=== PATIENT | female | born 1970 | race Caucasian/White ===

== ENCOUNTER → 2017-07-05 | Outpatient (CLI) | payer OTHER ==
[2015-08-27 19:39] VITALS: BP 121/70
[~2017-07-05] MED LIST: NAPR500T4 PO
--- NOTE | 2017-07-05 10:11 | RAD ---
DATE: 07/05/2017 EXAM: DIGITAL DIAGNOSTIC RT HISTORY: Asymmetry right breast COMPARISON: 06/27/2017 This study was interpreted with the benefit of Computerized Aided Detection (CAD). FINDINGS: Breast Density: HETERO The breast parenchyma Is heterogeneouslyy dense, which could reduce sensitivity of mammography. Breast parenchyma level C. Spot compression views of the right inner upper breast demonstrate spreading of the breast tissue on the spot images. No definite evidence of mass or lesion identified. Small intramammary lymph nodes identified in the right breast. IMPRESSION: Benign findings. BI-RADS CATEGORY: 2 BENIGN FINDING RECOMMENDED FOLLOW-UP: 12M 12 MONTH FOLLOW-UP PQRS compliance statement: Patient information was entered into a reminder system with a target due date 06/27/2018 for the next mammogram. Mammography is a sensitive method for finding small breast cancers, but it does not detect them all and is not a substitute for careful clinical examination. A negative mammogram does not negate a clinically suspicious finding and should not result in delay in biopsying a clinically suspicious abnormality. "Our facility is accredited by the [employer] Mammography Program."
== END | disposition home or self-care (01) ==
LOC: MAMMO 08:39
PROVIDERS: ATTEND Family Medicine
DX: R92.8 Other abnormal and inconclusive findings on diagnostic imaging of breast (principal)
CPT/HCPCS: G0206; 77065

== ENCOUNTER 2018-06-10 05:43 | Emergency (ER) | payer OTHER ==
[~2018-06-10] VITALS: Ht 175.3 cm; Wt 101.3 kg
[~2018-06-10 05:43] MED LIST changes: +NAPR-514 PO; -NAPR500T4 PO
[2018-06-10 05:45] VITALS: BP 131/105
[2018-06-10] MEDS ORDERED: LORazepam 1 MG TABLET ONE (05:51)
[2018-06-10] MEDS ORDERED: IV RINGERS SOLUTION,LACTATED 1,000 ML IV SCH (05:53)
--- NOTE | 2018-06-10 05:53 | ED.ADGEN ---
Past History Past Medical History: Seizure (KATYA KEENE MD) Past Surgical History: Cholecystectomy, Tubal ligation (KATYA KEENE MD) Smoking: Non-smoker Alcohol Use: None Drug Use: None (KATYA KEENE MD) Adult General Chief Complaint Chief Complaint ".. I guess I had a seizure... I have them sometimes... even if I take my Keppra... " (KATYA KEENE MD) HPI HPI Patient is a 47 year old female from [facility] [place] [facility] who presents with hx of tonic /clonic seizure. Pt. only current complaint is where she bit her tongue.. Pt. has been taking her Keppra 500 twice a day. Pt. denies any drug use. Patient denies any changes in meds. Patient denies any recent fever or chills. Patient denies any history of trauma. (KATYA KEENE MD) Review of Systems Review of Systems Constitutional: Denies fever or chills [] Eyes: Denies change in visual acuity, redness, or eye pain [] HENT: Denies nasal congestion or sore throat []complaints of bite to tongue Respiratory: Denies cough or shortness of breath [] Cardiovascular: No additional information not addressed in HPI [] GI: Denies abdominal pain, nausea, vomiting, bloody stools or diarrhea [] : Denies dysuria or hematuria [] Musculoskeletal: Denies back pain or joint pain [] Integument: Denies rash or skin lesions [] Neurologic: Denies headache, focal weakness or sensory changes []history of seizure tonic-clonic Endocrine: Denies polyuria or polydipsia [] All other systems were reviewed and found to be within normal limits, except as documented in this note. (KATYA KEENE MD) Family History Family History Noncontributory (KATYA KEENE MD) Current Medications Current Medications Current Medications Medications (Trade) Dose Ordered Sig/Delfino Start Time Stop Time Status Last Admin Dose Admin Lactated Ringer's 1,000 ml @ 1,000 mls/hr Q1H 06/10/18 05:53 06/10/18 06:52 DC 06/10/18 06:31 1,000 MLS/HR Levetiracetam (Keppra) 500 mg 1X ONCE 06/10/18 06:00 06/10/18 06:01 DC 06/10/18 06:31 500 MG Lorazepam (Ativan) 2 mg 1X ONCE 06/10/18 06:00 06/10/18 06:01 DC (TANISHA MARQUIS DO) Allergies Allergies Allergies Coded Allergies Type Severity Reaction Last Updated Verified Cyclobenzaprine Adverse Reaction Intermediate 05/07/14 Yes (TANISHA MARQUIS DO) Physical Exam Physical Exam Constitutional: mild distress, non-toxic appearance. [] HENT: Normocephalic, bite nixon to tongue, bilateral external ears normal, oropharynx moist, no oral exudates, nose normal. [] Eyes: PERRLA, EOMI, conjunctiva normal, no discharge. [] Neck: Normal range of motion, no tenderness, supple, no stridor. [] Cardiovascular:Heart rate regular rhythm, no murmur [] Lungs & Thorax: Bilateral breath sounds clear to auscultation [] Abdomen: Bowel sounds normal, soft, no tenderness, no masses, no pulsatile masses. Old surgery scar Skin: Warm, dry, no erythema, no rash. [] Back: No tenderness, no CVA tenderness. [] Extremities: No tenderness, no cyanosis, no clubbing, ROM intact, no edema. [] Neurologic: Alert and oriented X 3, normal motor function, normal sensory function, no focal deficits noted. []DTRs +2 patella and brachial. Moves all extremities without problem. Psychologic: Affect normal, judgement normal, mood normal. [] (KATYA KEENE MD) Current Patient Data Vital Signs Vital Signs Date Time Temp Pulse Resp B/P (MAP) Pulse Ox O2 Delivery O2 Flow Rate FiO2 06/10/18 05:45 98.3 93 22 94 Room Air (MARQUISTANISHA ) Lab Results Laboratory Tests Test 06/10/18 06:00 06/10/18 06:20 White Blood Count 5.7 x10^3/uL (4.0-11.0) Red Blood Count 4.21 x10^6/uL (3.50-5.40) Hemoglobin 11.5 g/dL (12.0-15.5) L Hematocrit 34.8 % (36.0-47.0) L Mean Corpuscular Volume 83 fL (79-100) Mean Corpuscular Hemoglobin 27 pg (25-35) Mean Corpuscular Hemoglobin Concent 33 g/dL (31-37) Red Cell Distribution Width 13.2 % (11.5-14.5) Platelet Count 281 x10^3/uL (140-400) Neutrophils (%) (Auto) 61 % (31-73) Lymphocytes (%) (Auto) 29 % (24-48) Monocytes (%) (Auto) 9 % (0-9) Eosinophils (%) (Auto) 2 % (0-3) Basophils (%) (Auto) 1 % (0-3) Neutrophils # (Auto) 3.5 x10^3uL (1.8-7.7) Lymphocytes # (Auto) 1.6 x10^3/uL (1.0-4.8) Monocytes # (Auto) 0.5 x10^3/uL (0.0-1.1) Eosinophils # (Auto) 0.1 x10^3/uL (0.0-0.7) Basophils # (Auto) 0.0 x10^3/uL (0.0-0.2) Prothrombin Time 10.0 SEC (9.4-11.4) Prothrombin Time INR 1.0 (0.9-1.1) PTT 23 SEC (23-33) Sodium Level 140 mmol/L (136-145) Potassium Level 3.7 mmol/L (3.5-5.1) Chloride Level 105 mmol/L (98-107) Carbon Dioxide Level 29 mmol/L (21-32) Anion Gap 6 (6-14) Blood Urea Nitrogen 11 mg/dL (7-20) Creatinine 0.7 mg/dL (0.6-1.0) Estimated GFR (Cockcroft-Gault) 90.5 Glucose Level 85 mg/dL (70-99) Calcium Level 8.8 mg/dL (8.5-10.1) Magnesium Level 1.5 mg/dL (1.8-2.4) L Total Bilirubin 0.2 mg/dL (0.2-1.0) Direct Bilirubin 0.1 mg/dL (0.0-0.2) Aspartate Amino Transferase (AST) 19 U/L (15-37) Alanine Aminotransferase (ALT) 25 U/L (14-59) Alkaline Phosphatase 95 U/L (46-116) Creatine Kinase 90 U/L (26-192) Troponin I Quantitative < 0.017 ng/mL (0-0.055) Total Protein 7.5 g/dL (6.4-8.2) Albumin 3.3 g/dL (3.4-5.0) L Urine Collection Type Void Urine Color Red Urine Clarity Bloody Urine pH 5.0 Urine Specific Chandler >=1.030 Urine Protein >100 mg/dl (NEG-TRACE) Urine Glucose (UA) Neg mg/dL (NEG) Urine Ketones (Stick) Neg mg/dL (NEG) Urine Blood Large (NEG) Urine Nitrite Neg (NEG) Urine Bilirubin Neg (NEG) Urine Urobilinogen Dipstick 0.2 mg/dL (0.2 mg/dL) Urine Leukocyte Esterase Small (NEG) Urine RBC Tntc /HPF (0-2) Urine WBC 11-20 /HPF (0-4) Urine Squamous Epithelial Cells Few /LPF Urine Bacteria Few /HPF (0-FEW) Urine Opiates Screen Neg (NEG) Urine Methadone Screen Neg (NEG) Urine Barbiturates Neg (NEG) Urine Phencyclidine Screen Neg (NEG) Urine Amphetamine/Methamphetamine Neg (NEG) Urine Benzodiazepines Screen Neg (NEG) Urine Cocaine Screen Neg (NEG) Urine Cannabinoids Screen Neg (NEG) Urine Ethyl Alcohol Neg (NEG) (TANISHA MARQUIS DO) Lab Results Laboratory Tests Test 06/10/18 06:00 06/10/18 06:20 White Blood Count 5.7 x10^3/uL (4.0-11.0) Red Blood Count 4.21 x10^6/uL (3.50-5.40) Hemoglobin 11.5 g/dL (12.0-15.5) L Hematocrit 34.8 % (36.0-47.0) L Mean Corpuscular Volume 83 fL (79-100) Mean Corpuscular Hemoglobin 27 pg (25-35) Mean Corpuscular Hemoglobin Concent 33 g/dL (31-37) Red Cell Distribution Width 13.2 % (11.5-14.5) Platelet Count 281 x10^3/uL (140-400) Neutrophils (%) (Auto) 61 % (31-73) Lymphocytes (%) (Auto) 29 % (24-48) Monocytes (%) (Auto) 9 % (0-9) Eosinophils (%) (Auto) 2 % (0-3) Basophils (%) (Auto) 1 % (0-3) Neutrophils # (Auto) 3.5 x10^3uL (1.8-7.7) Lymphocytes # (Auto) 1.6 x10^3/uL (1.0-4.8) Monocytes # (Auto) 0.5 x10^3/uL (0.0-1.1) Eosinophils # (Auto) 0.1 x10^3/uL (0.0-0.7) Basophils # (Auto) 0.0 x10^3/uL (0.0-0.2) Prothrombin Time 10.0 SEC (9.4-11.4) Prothrombin Time INR 1.0 (0.9-1.1) PTT 23 SEC (23-33) Sodium Level 140 mmol/L (136-145) Potassium Level 3.7 mmol/L (3.5-5.1) Chloride Level 105 mmol/L (98-107) Carbon Dioxide Level 29 mmol/L (21-32) Anion Gap 6 (6-14) Blood Urea Nitrogen 11 mg/dL (7-20) Creatinine 0.7 mg/dL (0.6-1.0) Estimated GFR (Cockcroft-Gault) 90.5 Glucose Level 85 mg/dL (70-99) Calcium Level 8.8 mg/dL (8.5-10.1) Magnesium Level 1.5 mg/dL (1.8-2.4) L Total Bilirubin 0.2 mg/dL (0.2-1.0) Direct Bilirubin 0.1 mg/dL (0.0-0.2) Aspartate Amino Transferase (AST) 19 U/L (15-37) Alanine Aminotransferase (ALT) 25 U/L (14-59) Alkaline Phosphatase 95 U/L (46-116) Creatine Kinase 90 U/L (26-192) Troponin I Quantitative < 0.017 ng/mL (0-0.055) Total Protein 7.5 g/dL (6.4-8.2) Albumin 3.3 g/dL (3.4-5.0) L Urine Collection Type Void Urine Color Red Urine Clarity Bloody Urine pH 5.0 Urine Specific [place] >=1.030 Urine Protein >100 mg/dl (NEG-TRACE) Urine Glucose (UA) Neg mg/dL (NEG) Urine Ketones (Stick) Neg mg/dL (NEG) Urine Blood Large (NEG) Urine Nitrite Neg (NEG) Urine Bilirubin Neg (NEG) Urine Urobilinogen Dipstick 0.2 mg/dL (0.2 mg/dL) Urine Leukocyte Esterase Small (NEG) Urine RBC Tntc /HPF (0-2) Urine WBC 11-20 /HPF (0-4) Urine Squamous Epithelial Cells Few /LPF Urine Bacteria Few /HPF (0-FEW) Urine Opiates Screen Neg (NEG) Urine Methadone Screen Neg (NEG) Urine Barbiturates Neg (NEG) Urine Phencyclidine Screen Neg (NEG) Urine Amphetamine/Methamphetamine Neg (NEG) Urine Benzodiazepines Screen Neg (NEG) Urine Cocaine Screen Neg (NEG) Urine Cannabinoids Screen Neg (NEG) Urine Ethyl Alcohol Neg (NEG) (KATYA KEENE MD) EKG EKG [] (KATYA KEENE MD) Radiology/Procedures Radiology/Procedures [] (KATYA KEENE MD) Impressions: PQRS Compliance Statement: One or more of the following individualized dose reduction techniques were utilized for this examination: 1. Automated exposure control 2. Adjustment of the mA and/or kV according to patient size 3. Use of iterative reconstruction technique CT head without contrast 06/10/2018 6:47 AM INDICATION: Seizure, fall COMPARISON: CT head January 19, 2014 TECHNIQUE: Multiple axial CT images of the head were obtained from skull base through the vertex without intravenous contrast. FINDINGS: Head: Ventricles, sulci and basal cisterns are within normal limits. There is no hydrocephalus. Rosa-white matter differentiation is normal. There is no acute intracranial hemorrhage. There is no mass, mass effect or midline shift. Posterior fossa is normal in appearance. Visualized portions of the orbits are normal. Mild mucosal thickening of the right maxillary sinus is noted. Mastoid air cells are well aerated. Scalp and calvaria are normal. IMPRESSION: No acute intracranial hemorrhage. Electronically signed by: Salome Escobedo MD (06/10/2018 7:19 AM) [facility] DICTATED AND SIGNED BY: SALOME ESCOBEDO MD DATE: 06/10/18 0718 CC: TANISHA MARQUIS DO; ARIELA PARKER MD (TANISHA MARQUIS DO) Course & Med Decision Making Course & Med Decision Making Pertinent Labs and Imaging studies reviewed. (See chart for details). Labs pending at shift change. Discussed presentation, testing and tx plan with Dr. Marquis. He will make disposition of pt. Suspect break through seizure. [] (KATYA KEENE MD) Course & Med Decision Making The patient's labs are unremarkable. Her chest x-ray is unremarkable. Her head CT is negative for acute findings. Her urine has significant bloody, but the patient is on her menses. I do not wish has an infection. She is asymptomatic. I believe the patient has a breakthrough seizure. She has been given Ativan and a dose of Keppra in the ED. She is stable for discharge at this time. (TANISHA MARQUIS DO) Final Impression Final Impression 1. Seizure-tonic clonic[] (KATYA KEENE MD) Final Impression Breakthrough seizure (TANISHA MARQUIS DO) Dragon Disclaimer Dragon Disclaimer This electronic medical record was generated, in whole or in part, using a voice recognition dictation system. (KATYA KEENE MD) KATYA KEENE MD Jun 10, 2018 05:53 TANISHA MARQUIS DO Jun 10, 2018 07:32
[2018-06-10] MEDS ORDERED: LORazepam 1 MG TABLET PO ONE ×2 (06:00)
[2018-06-10] MEDS ORDERED: levETIRAcetam 500 MG TABLET PO ONE (06:00)
[2018-06-10] MEDS ORDERED: LEVE500T56 PO (06:19)
[2018-06-10 06:47] LABS: BASO % 1 % (0-3); EOS # 0.1 x10^3/uL (0.0-0.7); EOS % 2 % (0-3); HEMATOCRIT 34.8 % (36.0-47.0); HEMOGLOBIN 11.5 g/dL (12.0-15.5); LYMPH # 1.6 x10^3/uL (1.0-4.8); LYMPH % 29 % (24-48); MEAN CORPUSCULAR HEMOGLOBIN 27 pg (25-35); MEAN CORPUSCULAR HGB CONC 33 g/dL (31-37); MEAN CORPUSCULAR VOLUME 83 fL (79-100); MONO # 0.5 x10^3/uL (0.0-1.1); MONO % 9 % (0-9); NEUT # 3.5 x10^3uL (1.8-7.7); NEUT % 61 % (31-73); PLATELET COUNT 281 x10^3/uL (140-400); RED BLOOD COUNT 4.21 x10^6/uL (3.50-5.40); RED CELL DISTRIBUTION WIDTH 13.2 % (11.5-14.5); WHITE BLOOD COUNT 5.7 x10^3/uL (4.0-11.0)
[2018-06-10 06:56] LABS: BILIRUBIN,URINE NEG (NEG); CLARITY,URINE BLOODY; COLOR,URINE RED; GLUCOSE,URINE NEG (NEG)
[2018-06-10 06:57] LABS: BACTERIA,URINE FEW /HPF (0-FEW); NITRITE,URINE NEG (NEG); RBC,URINE TNTC /HPF (0-2); SQUAMOUS EPITHELIAL CELL,UR FEW /LPF; UROBILINOGEN,URINE 0.2 mg/dL (0.2 mg/dL)
[2018-06-10 06:57] LABS: ALBUMIN 3.3 g/dL (3.4-5.0); CALCIUM 8.8 mg/dL (8.5-10.1); CREATININE 0.7 mg/dL (0.6-1.0); DIRECT BILIRUBIN 0.1 mg/dL (0.0-0.2); GFR 90.5; MAGNESIUM 1.5 mg/dL (1.8-2.4); POTASSIUM 3.7 mmol/L (3.5-5.1); TOTAL BILIRUBIN 0.2 mg/dL (0.2-1.0); TOTAL PROTEIN 7.5 g/dL (6.4-8.2)
[2018-06-10 06:59] LABS: AMPHETAMINE/METHAMPHETAMINE NEG (NEG); BARBITURATES NEG (NEG); BENZODIAZEPINES NEG (NEG); CANNABINOIDS NEG (NEG); COCAINE NEG (NEG); METHADONE NEG (NEG); OPIATES NEG (NEG); PHENCYCLIDINE NEG (NEG)
--- NOTE | 2018-06-10 07:23 | RAD ---
RS Compliance Statement: One or more of the following individualized dose reduction techniques were utilized for this examination: 1. Automated exposure control 2. Adjustment of the mA and/or kV according to patient size 3. Use of iterative reconstruction technique CT head without contrast 06/10/2018 6:47 AM INDICATION: Seizure, fall COMPARISON: CT head January 19, 2014 TECHNIQUE: Multiple axial CT images of the head were obtained from skull base through the vertex without intravenous contrast. FINDINGS: Head: Ventricles, sulci and basal cisterns are within normal limits. There is no hydrocephalus. Rosa-white matter differentiation is normal. There is no acute intracranial hemorrhage. There is no mass, mass effect or midline shift. Posterior fossa is normal in appearance. Visualized portions of the orbits are normal. Mild mucosal thickening of the right maxillary sinus is noted. Mastoid air cells are well aerated. Scalp and calvaria are normal. IMPRESSION: No acute intracranial hemorrhage. Electronically signed by: Ashley Gonzalez MD (06/10/2018 7:19 AM) [facility]
--- NOTE | 2018-06-10 08:36 | RAD ---
EXAM: CHEST 1 VIEW History: Seizure COMPARISON: None available. TECHNIQUE: Single portable radiograph of the chest FINDINGS: The cardiac silhouette is unremarkable. The lungs are clear bilaterally. The costophrenic sulci are clear and well demarcated. IMPRESSION: No radiographic evidence of an acute cardiopulmonary process. Electronically signed by: Osmani Iyer MD (06/10/2018 8:32 AM) [facility]
--- NOTE | 2018-06-10 09:50 | EKG ---
[address] [address] Test Date: 2018-06-10 Test Time: 06:06:52 Pat Name: PAVAN GARCIA Department: Room: Gender: F [employer] Tender: : 1970 Requested By: KATYA KEENE Order Number: [id number] Reading MD: Juan Childs MD Measurements Intervals [place] Rate: 84 P: 21 [place]: 138 QRS: -3 QRSD: 80 T: 15 QT: 372 QTc: 443 Interpretive Statements SINUS RHYTHM Electronically Signed On 06-11-2018 14:01:16 CDT by Juan Childs MD
== END 2018-06-10 07:40 | disposition home or self-care (01) ==
LOC: ER 05:43
DX: G40.89 Other seizures (principal); Z88.8 Allergy status to other drugs, medicaments and biological substances
CPT/HCPCS: 36415; 70450; 71045; 80048; 80076; 80307; 81001; 82550; 83735; 84484; 85025; 85610; 85730; 87086; 93005; 99285; J7120; G0479

== ENCOUNTER 2020-08-01 15:36 | Emergency (ER) | payer MEDICAID, OTHER ==
[~2020-08-01] VITALS: Ht 175.3 cm; Wt 85.0 kg
[~2020-08-01 15:36] MED LIST changes: +LEVE500T56 PO
[2020-08-01] MEDS ORDERED: IV NORMAL SALINE 1,000ML 1,000 ML IV ONE (16:15)
--- NOTE | 2020-08-01 16:27 | PHYS DOC ---
Past History Past Medical History: Gallstones, Seizure Past Surgical History: Cholecystectomy, Tonsillectomy, Tubal ligation Smoking: Non-smoker Alcohol Use: None Drug Use: None General Adult EDM: Chief Complaint: SEIZURE HPI: HPI: Patient is a 49-year-old female who was brought here by EMS from home after she had a seizure activity. Patient did not remember what happened. She denies any headache, no neck pain, no back pain, no abdominal pain, no nausea vomiting. Patient thought that she might have fell on her left side and hurt her left hip and her and her left chest area because he is having pain in the with movement or taking a deep breath. There was no report of head or neck injury. Patient has history of seizure disorder, she is on Keppra 500 mg that she is taking 2 pills twice a day. Patient says she did not miss any of her medication. Patient denies any cough or fever, no recent sickness. Review of Systems: Review of Systems: Constitutional: Denies fever or chills Eyes: Denies change in visual acuity HENT: Denies nasal congestion or sore throat Respiratory: Denies cough or shortness of breath Cardiovascular: Denies chest pain or edema, positive for left-sided pain GI: Denies abdominal pain, nausea, vomiting, bloody stools or diarrhea : Denies dysuria Musculoskeletal: Denies back pain , positive for left side hip pain Integument: Denies rash Neurologic: Denies headache, focal weakness or sensory changes Endocrine: Denies polyuria or polydipsia Lymphatic: Denies swollen glands Psychiatric: Denies depression or anxiety Current Medications: Current Meds: Current Medications Medications (Trade) Dose Ordered Sig/[facility] Start Time Stop Time Status Last Admin Dose Admin Levetiracetam 1000 mg/Sodium Chloride 100 ml @ 400 mls/hr 1X ONCE 08/01/20 16:00 08/01/20 16:14 DC Sodium Chloride 1,000 ml @ 1,000 mls/hr 1X ONCE 08/01/20 16:15 08/01/20 17:14 Allergies: Allergies: Allergies Coded Allergies Type Severity Reaction Last Updated Verified cyclobenzaprine Adverse Reaction Intermediate 08/01/20 Yes Physical Exam: PE: Constitutional: Well developed, well nourished, no acute distress, non-toxic appearance. [] HENT: Normocephalic, atraumatic, bilateral external ears normal, oropharynx moist, no oral exudates, nose normal. No tongue abrasion, no scalp contusion, neck is supple, no midline cervical tenderness to palpation Eyes: PERRLA, EOMI, conjunctiva normal, no discharge. [] Neck: Normal range of motion, no tenderness, supple, no stridor. [] Cardiovascular:Heart rate regular rhythm, no murmur [] Lungs & Thorax: Bilateral breath sounds clear to auscultation [] Abdomen: Bowel sounds normal, soft, no tenderness, no masses, no pulsatile masses. [] Skin: Warm, dry, no erythema, no rash. [] Back: No tenderness, no CVA tenderness. [] Extremities: No tenderness, no cyanosis, no clubbing, ROM intact, no edema. [] Neurologic: Alert and oriented X 3, normal motor function, normal sensory function, no focal deficits noted. [] Psychologic: Affect normal, judgement normal, mood normal. [] Current Patient Data: Labs: Laboratory Tests Test 08/01/20 16:40 White Blood Count 8.4 x10^3/uL Red Blood Count 3.75 x10^6/uL Hemoglobin 10.3 g/dL Hematocrit 31.3 % Mean Corpuscular Volume 84 fL Mean Corpuscular Hemoglobin 28 pg Mean Corpuscular Hemoglobin Concent 33 g/dL Red Cell Distribution Width 14.5 % Platelet Count 339 x10^3/uL Neutrophils (%) (Auto) 71 % Lymphocytes (%) (Auto) 18 % Monocytes (%) (Auto) 9 % Eosinophils (%) (Auto) 1 % Basophils (%) (Auto) 1 % Neutrophils # (Auto) 5.9 x10^3uL Lymphocytes # (Auto) 1.5 x10^3/uL Monocytes # (Auto) 0.8 x10^3/uL Eosinophils # (Auto) 0.0 x10^3/uL Basophils # (Auto) 0.1 x10^3/uL Sodium Level 135 mmol/L Potassium Level 3.6 mmol/L Chloride Level 101 mmol/L Carbon Dioxide Level 24 mmol/L Anion Gap 10 Blood Urea Nitrogen 9 mg/dL Creatinine 0.7 mg/dL Estimated GFR (Cockcroft-Gault) 89.7 BUN/Creatinine Ratio 13 Glucose Level 86 mg/dL Calcium Level 8.3 mg/dL Magnesium Level 1.7 mg/dL Total Bilirubin 1.1 mg/dL Aspartate Amino Transf (AST/SGOT) 35 U/L Alanine Aminotransferase (ALT/SGPT) 34 U/L Alkaline Phosphatase 78 U/L Creatine Kinase 169 U/L Troponin I Quantitative < 0.017 ng/mL Total Protein 7.4 g/dL Albumin 3.4 g/dL Albumin/Globulin Ratio 0.9 Current Medications Medications (Trade) Dose Ordered Sig/Delfino Route PRN Reason Start Time Stop Time Status Last Admin Dose Admin Levetiracetam 1000 mg/Sodium Chloride 100 ml @ 400 mls/hr 1X ONCE IV 08/01/20 16:00 08/01/20 16:14 DC 08/01/20 16:38 Sodium Chloride 1,000 ml @ 1,000 mls/hr 1X ONCE IV 08/01/20 16:15 08/01/20 17:14 DC 08/01/20 16:38 Magnesium Sulfate 100 ml @ 100 mls/hr 1X ONCE IV 08/01/20 18:00 08/01/20 18:59 Vital Signs: Vital Signs Date Time Temp Pulse Resp B/P (MAP) Pulse Ox O2 Delivery O2 Flow Rate FiO2 08/01/20 15:40 98.2 100 18 140/82 (101) 99 Room Air EKG: EKG: EKG was done and it show no ST segment elevation, sinus rhythm. Radiology/Procedures: Radiology/Procedures: X-ray of her chest and her pelvic and her left hip did not show any acute problem. [address] [address] IMAGING REPORT Signed PATIENT: PAVAN GARCIA ACCOUNT: [id number] : 1970 LOCATION: ER AGE: 49 SEX: F EXAM STATUS: REG ER ORD. PHYSICIAN: ALTHEA HUSTON DO REASON: HAD A SEIZURE, FELL ON LEFT SIDE CHEST PROCEDURE: CHEST AP ONLY INDICATION: Reason: HAD A SEIZURE, FELL ON LEFT SIDE CHEST / Spl. Instructions: / History: COMPARISON: May 2018 FINDINGS: Single view of chest obtained. Cardiac silhouette is similar to prior. No focal airspace consolidation or pulmonary edema. A definite displaced fracture is not seen. IMPRESSION: * No focal airspace consolidation or edema. Electronically signed by: Aurora Olmstead MD (08/01/2020 5:45 PM) [id number] DICTATED AND SIGNED BY: AURORA OLMSTEAD MD DATE: 08/01/20 1745 CC: ARIELA PARKER MD; ALTHEA HUSTON DO ~MTH0 0 Heart Score: Risk Factors: Risk Factors: DM, Current or recent (<one month) smoker, HTN, HLP, family history of CAD, obesity. Risk Scores: Score 0 - 3: 2.5% MACE over next 6 weeks - Discharge Home Score 4 - 6: 20.3% MACE over next 6 weeks - Admit for Clinical Observation Score 7 - 10: 72.7% MACE over next 6 weeks - Early Invasive Strategies Course & Med Decision Making: Course & Med Decision Making Pertinent Labs and Imaging studies reviewed. (See chart for details) Patient is a 49-year-old female who presented to ER today for evaluation of seizure activity. Patient has a history of seizure disorder, she is on Keppra. There is no seizure activity observed in the ER, x-ray her chest to help hip an d pelvis did not show any acute problem. Patient was given loading dose of 1 g of Keppra IV in ER. Patient will be discharged home, she will need to call her family physician and her neurologist for follow-up on Monday. Patient is amenable to plan of care. Dragon Disclaimer: Dragon Disclaimer: This electronic medical record was generated, in whole or in part, using a voice recognition dictation system. Departure Departure: Impression: Primary Impression: Seizure Additional Impression: Hypomagnesemia Disposition: 01 DC HOME SELF CARE/HOMELESS Condition: STABLE Referrals: ARIELA PARKER MD (PCP) Please call your doctor for follow-up on Monday. Patient Instructions: Seizure, Adult Additional Instructions: Thank you for visiting our Emergency Department. We appreciate you trusting us with your care. If any additional problems come up don't hesitate to return to visit us. Please follow up with your primary care provider so they can plan additional care if needed and know about the problem that you had. If symptoms worsen come back to the Emergency Department. Any concerning symptoms that start such as chest pain, shortness of air, weakness or numbness on one side of the body, running high fevers or any other concerning symptoms return to the ER. ALTHEA HUSTON DO Aug 01, 2020 16:27
--- NOTE | 2020-08-01 16:48 | EKG ---
[facility] ED [facility] [address] [place] [id number] Test Date: 2020-08-01 Test Time: 16:07:32 Pat Name: PAVAN GARCIA Department: Room: Gender: F Electronic Health Records Specialist: : 1970 Requested By: ALTHEA HUSTON Order Number: [id number] Reading MD: Measurements Intervals [place] Rate: 83 P: 31 [place]: 142 QRS: 8 QRSD: 76 T: 28 QT: 398 QTc: 468 Interpretive Statements SINUS RHYTHM NORMAL ECG RI6.02 No previous ECG available for comparison
[2020-08-01 17:04] LABS: BASO # 0.1 x10^3/uL (0.0-0.2); BASO % 1 % (0-3); EOS % 1 % (0-3); HEMATOCRIT 31.3 % (36.0-47.0); HEMOGLOBIN 10.3 g/dL (12.0-15.5); LYMPH # 1.5 x10^3/uL (1.0-4.8); LYMPH % 18 % (24-48); MEAN CORPUSCULAR HEMOGLOBIN 28 pg (25-35); MEAN CORPUSCULAR HGB CONC 33 g/dL (31-37); MEAN CORPUSCULAR VOLUME 84 fL (79-100); MONO # 0.8 x10^3/uL (0.0-1.1); MONO % 9 % (0-9); NEUT # 5.9 x10^3uL (1.8-7.7); NEUT % 71 % (31-73); PLATELET COUNT 339 x10^3/uL (140-400); RED BLOOD COUNT 3.75 x10^6/uL (3.50-5.40); RED CELL DISTRIBUTION WIDTH 14.5 % (11.5-14.5); WHITE BLOOD COUNT 8.4 x10^3/uL (4.0-11.0)
[2020-08-01 17:11] LABS: CALCIUM 8.3 mg/dL (8.5-10.1); CREATININE 0.7 mg/dL (0.6-1.0); GFR 89.7; POTASSIUM 3.6 mmol/L (3.5-5.1)
[2020-08-01 17:17] LABS: ALBUMIN 3.4 g/dL (3.4-5.0); ALBUMIN/GLOBULIN RATIO 0.9 (1.0-1.7); MAGNESIUM 1.7 mg/dL (1.8-2.4); TOTAL BILIRUBIN 1.1 mg/dL (0.2-1.0); TOTAL PROTEIN 7.4 g/dL (6.4-8.2)
--- NOTE | 2020-08-01 17:48 | RAD ---
INDICATION: Reason: HAD A SEIZURE, FELL ON LEFT SIDE CHEST / Spl. Instructions: / History: COMPARISON: May 2018 FINDINGS: Single view of chest obtained. Cardiac silhouette is similar to prior. No focal airspace consolidation or pulmonary edema. A definite displaced fracture is not seen. IMPRESSION: * No focal airspace consolidation or edema. Electronically signed by: Saeid Vizcarra MD (08/01/2020 5:45 PM) [id number]
--- NOTE | 2020-08-01 17:48 | RAD ---
AP pelvis with 2 views left hip 08/01/2020. Reason for exam: Pain after seizure. No fracture or dislocation is seen. There is no apparent joint narrowing. AP view of the pelvis shows no fracture or other acute abnormality. IMPRESSION: No acute abnormality at the left hip. Electronically signed by: Valentino Arshad Jr., MD (08/01/2020 5:45 PM) [id number]
[2020-08-01] MEDS ORDERED: MAGNESIUM SULFATE 1GM 100 ML IV ONE (18:00)
[2020-08-01 18:25] VITALS: BP 138/88
== END 2020-08-01 18:25 | disposition home or self-care (01) ==
LOC: ER 15:36
DX: G40.909 Epilepsy, unspecified, not intractable, without status epilepticus (principal); E83.42 Hypomagnesemia; M25.552 Pain in left hip; Z87.442 Personal history of urinary calculi; Z90.49 Acquired absence of other specified parts of digestive tract; Z90.89 Acquired absence of other organs; Z88.8 Allergy status to other drugs, medicaments and biological substances
CPT/HCPCS: 71045; 73502; 80053; 82550; 83735; 84484; 85025; 93005; 96361; 96365; 99285; J1953; J3475; J7030

== ENCOUNTER 2021-02-15 10:17 | Emergency (ER) | payer MEDICAID ==
[~2021-02-15] VITALS: Ht 175.3 cm; Wt 85.0 kg
[2021-02-15 10:18] VITALS: BP 135/75
[2021-02-15] MEDS ORDERED: IV NORMAL SALINE 1,000ML 1,000 ML IV ONE (10:45)
--- NOTE | 2021-02-15 10:58 | PHYS DOC ---
Past History Past Medical History: Gallstones, Seizure Past Surgical History: Cholecystectomy, Tonsillectomy, Tubal ligation Smoking: Non-smoker Alcohol Use: None Drug Use: None General Adult EDM: Chief Complaint: SEIZURE HPI: HPI: 50-year-old female presents via EMS for presumed seizure. The last thing the p atient remembers is being at work cleaning a house in a bathroom. She then remembers waking up in the emergency room. She thinks she might remember waking up in the ambulance but she is not certain. She has known seizure disorder. She was reported to have had tonic-clonic activity and postictal state via EMS. She is on Keppra. She has not missed any doses. Her last seizure was about a year ago. She was feeling well prior to this episode. She has no complaints at this time. Review of Systems: Review of Systems: Constitutional: Denies fever or chills Eyes: Denies change in visual acuity HENT: Denies nasal congestion or sore throat Respiratory: Denies cough or shortness of breath Cardiovascular: Denies chest pain or edema GI: Denies abdominal pain, nausea, vomiting, bloody stools or diarrhea : Denies dysuria Musculoskeletal: Denies back pain or joint pain Integument: Denies rash Neurologic: Seizure. Denies headache, focal weakness or sensory changes Endocrine: Denies polyuria or polydipsia Lymphatic: Denies swollen glands Psychiatric: Denies depression or anxiety Current Medications: Current Meds: Current Medications Medications (Trade) Dose Ordered Sig/Delfino Start Time Stop Time Status Last Admin Dose Admin Levetiracetam 1000 mg/Sodium Chloride 100 ml @ 400 mls/hr 1X ONCE 02/15/21 10:40 02/15/21 10:54 DC Sodium Chloride 1,000 ml @ 1,000 mls/hr 1X ONCE 02/15/21 10:45 02/15/21 11:44 Allergies: Allergies: Allergies Coded Allergies Type Severity Reaction Last Updated Verified cyclobenzaprine Adverse Reaction Intermediate 08/01/20 Yes Physical Exam: PE: Constitutional: Well developed, well nourished, no acute distress, non-toxic appearance. [] HENT: Normocephalic, atraumatic, bilateral external ears normal, oropharynx moist, no oral exudates, nose normal. [] Eyes: PERRLA, EOMI, conjunctiva normal, no discharge. [] Neck: Normal range of motion, no tenderness, supple, no stridor. [] Cardiovascular:Heart rate regular rhythm, no murmur [] Lungs & Thorax: Bilateral breath sounds clear to auscultation [] Abdomen: Bowel sounds normal, soft, no tenderness, no masses, no pulsatile masses. [] Skin: Warm, dry, no erythema, no rash. [] Back: No tenderness, no CVA tenderness. [] Extremities: No tenderness, no cyanosis, no clubbing, ROM intact, no edema. [] Neurologic: Alert and oriented X 3, normal motor function, normal sensory function, no focal deficits noted. [] Psychologic: Affect normal, judgement normal, mood normal. [] EKG: EKG: [] Radiology/Procedures: Radiology/Procedures: [] Impressions: EXAM: CHEST 1 VIEW History: Seizure COMPARISON: 08/01/2020. TECHNIQUE: Single portable radiograph of the chest FINDINGS: The cardiac silhouette is unremarkable. The lungs are clear bilaterally. The costophrenic sulci are clear and well demarcated. . IMPRESSION: No radiographic evidence of an acute cardiopulmonary process. Electronically signed by: Osmani Iyer MD (02/15/2021 11:14 AM) [id number] DICTATED AND SIGNED BY: OSMANI IYER MD DATE: 02/15/21 1110 CC: TANISHA MARQUIS DO; ARIELA PARKER MD ~MTH0 0 Heart Score: C/O Chest Pain: N/A Risk Factors: Risk Factors: DM, Current or recent (<one month) smoker, HTN, HLP, family history of CAD, obesity. Risk Scores: Score 0 - 3: 2.5% MACE over next 6 weeks - Discharge Home Score 4 - 6: 20.3% MACE over next 6 weeks - Admit for Clinical Observation Score 7 - 10: 72.7% MACE over next 6 weeks - Early Invasive Strategies Course & Med Decision Making: Course & Med Decision Making Pertinent Labs and Imaging studies reviewed. (See chart for details) The patient's labs are unremarkable. I gave her an extra gram of Keppra IV. I have ordered a Keppra level, but will not get it back. I informed the patient that her neurologist or other physicians can requested lab value through medical records starting tomorrow. The patient feels good. She would like to go home. She is stable for discharge at this time. [] Dragon Disclaimer: Dragon Disclaimer: This electronic medical record was generated, in whole or in part, using a voice recognition dictation system. Departure Departure: Impression: Primary Impression: Seizure Disposition: 01 HOME / SELF CARE / HOMELESS Condition: STABLE Referrals: ARIELA PARKER MD (PCP) Patient Instructions: Seizure, Adult TANISHA MARQUIS DO Feb 15, 2021 10:58
[2021-02-15 11:10] LABS: BASO # 0.1 x10^3/uL (0.0-0.2); BASO % 1 % (0-3); EOS % 1 % (0-3); HEMATOCRIT 31.1 % (36.0-47.0); HEMOGLOBIN 10.2 g/dL (12.0-15.5); LYMPH # 1.7 x10^3/uL (1.0-4.8); LYMPH % 28 % (24-48); MEAN CORPUSCULAR HEMOGLOBIN 29 pg (25-35); MEAN CORPUSCULAR HGB CONC 33 g/dL (31-37); MEAN CORPUSCULAR VOLUME 88 fL (79-100); MONO # 0.5 x10^3/uL (0.0-1.1); MONO % 9 % (0-9); NEUT # 3.7 x10^3uL (1.8-7.7); NEUT % 61 % (31-73); PLATELET COUNT 298 x10^3/uL (140-400); RED BLOOD COUNT 3.55 x10^6/uL (3.50-5.40); RED CELL DISTRIBUTION WIDTH 12.4 % (11.5-14.5)
--- NOTE | 2021-02-15 11:17 | RAD ---
EXAM: CHEST 1 VIEW History: Seizure COMPARISON: 08/01/2020. TECHNIQUE: Single portable radiograph of the chest FINDINGS: The cardiac silhouette is unremarkable. The lungs are clear bilaterally. The costophrenic sulci are clear and well demarcated. . IMPRESSION: No radiographic evidence of an acute cardiopulmonary process. Electronically signed by: Osmani Iyer MD (02/15/2021 11:14 AM) [id number]
[2021-02-15 11:36] LABS: POTASSIUM ISTAT 3.7 mmol/L (3.5-5.0)
[2021-02-15 11:37] LABS: HEMOGLOBIN ISTAT 10.5 gm/dL
[2021-02-15 12:27] LABS: BILIRUBIN,URINE NEG (NEG); CLARITY,URINE CLEAR; COLOR,URINE YELLOW; GLUCOSE,URINE NEG (NEG); NITRITE,URINE NEG (NEG)
[2021-02-15 12:37] LABS: BACTERIA,URINE FEW /HPF (0-FEW); SQUAMOUS EPITHELIAL CELL,UR MOD /LPF
[2021-02-15 15:49] LABS: CALCIUM 8.5 mg/dL (8.5-10.1); CREATININE 0.7 mg/dL (0.6-1.0); GFR 89.3
[2021-02-15 15:58] LABS: ALBUMIN 3.3 g/dL (3.4-5.0); ALBUMIN/GLOBULIN RATIO 0.9 (1.0-1.7); TOTAL BILIRUBIN 0.5 mg/dL (0.2-1.0); TOTAL PROTEIN 6.8 g/dL (6.4-8.2)
== END 2021-02-15 12:45 | disposition home or self-care (01) ==
LOC: ER 10:17
DX: G40.909 Epilepsy, unspecified, not intractable, without status epilepticus (principal); Z90.49 Acquired absence of other specified parts of digestive tract; Z98.51 Tubal ligation status
CPT/HCPCS: 36415; 71045; 80047; 80053; 81001; 85025; 96361; 96374; 99284; J1953; J7030; 80177

== ENCOUNTER 2021-03-23 14:56 | Emergency (ER) | payer MEDICAID ==
[~2021-03-23] VITALS: Ht 175.3 cm; Wt 85.0 kg
[2021-03-23] MEDS ORDERED: IV NORMAL SALINE 1,000ML 1,000 ML IV ONE (15:00)
[2021-03-23 15:31] LABS: BASO # 0.1 x10^3/uL (0.0-0.2); BASO % 1 % (0-3); EOS # 0.1 x10^3/uL (0.0-0.7); EOS % 1 % (0-3); HEMATOCRIT 32.6 % (36.0-47.0); HEMOGLOBIN 10.7 g/dL (12.0-15.5); LYMPH # 2.7 x10^3/uL (1.0-4.8); LYMPH % 35 % (24-48); MEAN CORPUSCULAR HEMOGLOBIN 28 pg (25-35); MEAN CORPUSCULAR HGB CONC 33 g/dL (31-37); MEAN CORPUSCULAR VOLUME 84 fL (79-100); MONO # 0.7 x10^3/uL (0.0-1.1); MONO % 9 % (0-9); NEUT # 4.1 x10^3uL (1.8-7.7); NEUT % 54 % (31-73); PLATELET COUNT 267 x10^3/uL (140-400); RED BLOOD COUNT 3.88 x10^6/uL (3.50-5.40); RED CELL DISTRIBUTION WIDTH 12.3 % (11.5-14.5); WHITE BLOOD COUNT 7.6 x10^3/uL (4.0-11.0)
[2021-03-23 15:47] LABS: ALBUMIN 3.6 g/dL (3.4-5.0); ALBUMIN/GLOBULIN RATIO 0.9 (1.0-1.7); CALCIUM 8.8 mg/dL (8.5-10.1); CREATININE 0.8 mg/dL (0.6-1.0); GFR 76.6; MAGNESIUM 1.4 mg/dL (1.8-2.4); TOTAL BILIRUBIN 0.6 mg/dL (0.2-1.0); TOTAL PROTEIN 7.4 g/dL (6.4-8.2)
[2021-03-23 15:55] LABS: POTASSIUM 2.9 mmol/L (3.5-5.1)
[2021-03-23] MEDS ORDERED: POTASSIUM CHLORIDE 20 MEQ TABLET.ER. PO ONE (16:15)
[2021-03-23] MEDS ORDERED: MAGNESIUM CHLORIDE ER 64 MG TABLET.ER PO ONE (16:30)
[2021-03-23] MEDS ORDERED: IV RINGERS SOLUTION,LACTATED 1,000 ML IV ONE (16:30)
[2021-03-23 17:38] LABS: BILIRUBIN,URINE NEG (NEG); CLARITY,URINE CLEAR; COLOR,URINE YELLOW; GLUCOSE,URINE NEG (NEG)
[2021-03-23 17:39] LABS: BACTERIA,URINE 0 /HPF (0-FEW); NITRITE,URINE NEG (NEG); RBC,URINE 0 /HPF (0-2); SQUAMOUS EPITHELIAL CELL,UR MOD /LPF
--- NOTE | 2021-03-23 18:14 | PHYS DOC ---
Past History Past Medical History: Gallstones, Seizure Past Surgical History: Cholecystectomy, Tonsillectomy, Tubal ligation Smoking: Non-smoker Alcohol Use: None Drug Use: None General Adult EDM: Chief Complaint: SEIZURE HPI: HPI: Patient is a [age] year old [sex] who presents with [] Review of Systems: Review of Systems: Constitutional: Denies fever or chills Eyes: Denies redness or eye pain HENT: Denies nasal congestion or sore throat Respiratory: Denies cough or shortness of breath Cardiovascular: Denies chest pain or palpitations GI: Denies abdominal pain, nausea, or vomiting : Denies dysuria or hematuria Musculoskeletal: Denies back pain or joint pain Integument: Denies rash or skin lesions Neurologic: Denies headache, focal weakness or sensory changes Complete systems were reviewed and found to be within normal limits, except as documented in this note. Current Medications: Current Meds: Current Medications Medications (Trade) Dose Ordered Sig/Delfino Start Time Stop Time Status Last Admin Dose Admin Lactated Ringer's 1,000 ml @ 1,000 mls/hr 1X ONCE 03/23/21 16:30 03/23/21 17:29 DC 03/23/21 16:30 1,000 MLS/HR Magnesium Chloride (Mag Delay) 64 mg 1X ONCE 03/23/21 16:30 03/23/21 16:56 DC 03/23/21 16:31 64 MG Potassium Chloride (Klor-Con) 40 meq 1X ONCE 03/23/21 16:15 03/23/21 16:56 DC 03/23/21 16:31 40 MEQ Sodium Chloride 1,000 ml @ 1,000 mls/hr 1X ONCE 03/23/21 15:00 03/23/21 15:59 DC 03/23/21 15:23 1,000 MLS/HR Allergies: Allergies: Allergies Coded Allergies Type Severity Reaction Last Updated Verified cyclobenzaprine Adverse Reaction Intermediate 08/01/20 Yes Physical Exam: PE: Constitutional: Well developed, well nourished, no acute distress, non-toxic appearance HENT: Normocephalic, atraumatic Eyes: PERRL, EOMI, conjunctiva normal, no discharge Neck: Normal range of motion, no tenderness, supple Lungs & Thorax: No respiratory distress, equal chest rise and fall Abdomen: Soft, no tenderness Skin: Warm, dry, no erythema, no rash Back: No tenderness, no CVA tenderness Extremities: No tenderness, ROM intact, no edema Neurologic: Alert and oriented X 3, normal motor function, normal sensory function, no focal deficits noted Psychologic: Affect normal, judgment normal Current Patient Data: Labs: Laboratory Tests Test 03/23/21 15:15 03/23/21 16:59 White Blood Count 7.6 x10^3/uL (4.0-11.0) Red Blood Count 3.88 x10^6/uL (3.50-5.40) Hemoglobin 10.7 g/dL (12.0-15.5) L Hematocrit 32.6 % (36.0-47.0) L Mean Corpuscular Volume 84 fL (79-100) Mean Corpuscular Hemoglobin 28 pg (25-35) Mean Corpuscular Hemoglobin Concent 33 g/dL (31-37) Red Cell Distribution Width 12.3 % (11.5-14.5) Platelet Count 267 x10^3/uL (140-400) Neutrophils (%) (Auto) 54 % (31-73) Lymphocytes (%) (Auto) 35 % (24-48) Monocytes (%) (Auto) 9 % (0-9) Eosinophils (%) (Auto) 1 % (0-3) Basophils (%) (Auto) 1 % (0-3) Neutrophils # (Auto) 4.1 x10^3uL (1.8-7.7) Lymphocytes # (Auto) 2.7 x10^3/uL (1.0-4.8) Monocytes # (Auto) 0.7 x10^3/uL (0.0-1.1) Eosinophils # (Auto) 0.1 x10^3/uL (0.0-0.7) Basophils # (Auto) 0.1 x10^3/uL (0.0-0.2) Sodium Level 142 mmol/L (136-145) Potassium Level 2.9 mmol/L (3.5-5.1) *L Chloride Level 106 mmol/L (98-107) Carbon Dioxide Level 23 mmol/L (21-32) Anion Gap 13 (6-14) Blood Urea Nitrogen 11 mg/dL (7-20) Creatinine 0.8 mg/dL (0.6-1.0) Estimated GFR (Cockcroft-Gault) 76.6 BUN/Creatinine Ratio 14 (6-20) Glucose Level 85 mg/dL (70-99) Lactic Acid Level 3.9 mmol/L (0.4-2.0) H Calcium Level 8.8 mg/dL (8.5-10.1) Magnesium Level 1.4 mg/dL (1.8-2.4) L Total Bilirubin 0.6 mg/dL (0.2-1.0) Aspartate Amino Transferase (AST) 18 U/L (15-37) Alanine Aminotransferase (ALT) 20 U/L (14-59) Alkaline Phosphatase 69 U/L (46-116) Creatine Kinase 87 U/L (26-192) Total Protein 7.4 g/dL (6.4-8.2) Albumin 3.6 g/dL (3.4-5.0) Albumin/Globulin Ratio 0.9 (1.0-1.7) L Urine Collection Type Unknown Urine Color Yellow Urine Clarity Clear Urine pH 6.0 Urine Specific [place] >=1.030 Urine Protein 30 mg/dl (NEG-TRACE) Urine Glucose (UA) Neg mg/dL (NEG) Urine Ketones (Stick) Neg mg/dL (NEG) Urine Blood Neg (NEG) Urine Nitrite Neg (NEG) Urine Bilirubin Neg (NEG) Urine Urobilinogen Dipstick 1.0 mg/dL (0.2 mg/dL) Urine Leukocyte Esterase Neg (NEG) Urine RBC 0 /HPF (0-2) Urine WBC 1-4 /HPF (0-4) Urine Squamous Epithelial Cells Mod /LPF Urine Bacteria 0 /HPF (0-FEW) Vital Signs: Vital Signs Date Time Temp Pulse Resp B/P (MAP) Pulse Ox O2 Delivery O2 Flow Rate FiO2 03/23/21 16:32 90 16 134/74 (94) 98 Room Air 03/23/21 14:59 98.3 EKG: EKG: [] Radiology/Procedures: Radiology/Procedures: [] Heart Score: C/O Chest Pain: N/A Course & Med Decision Making: Course & Med Decision Making Pertinent Lab studies reviewed. (See chart for details) Patient stable for discharge with outpatient follow-up with PCP/neurology. Discussed findings and plan with patient, who acknowledges understanding and agreement. Nkechi Disclaimer: Dragon Disclaimer: This electronic medical record was generated, in whole or in part, using a voice recognition dictation system. Departure Departure: Impression: Primary Impression: Breakthrough seizure Additional Impressions: Hypokalemia Hypomagnesemia Disposition: HOME / SELF CARE / HOMELESS Condition: STABLE Referrals: ARIELA PARKER MD (PCP) Patient Instructions: Hypokalemia, Hypomagnesemia, Potassium Content of Foods, Seizure, Adult, [id number] Additional Instructions: Please continue take seizure medication as prescribed. Please follow-up closely with your neurologist for further evaluation to determine if adjustment of your seizure medications is required. As you have recently had a breakthrough seizure, please refrain from driving or operating heavy machinery until cleared by your neurologist or it has been 6 months being seizure-free. PRISCILLA TAMEZ DO Mar 23, 2021 18:14
[2021-03-23 18:20] VITALS: BP 132/74
== END 2021-03-23 18:20 | disposition home or self-care (01) ==
LOC: ER 14:56
DX: R56.9 Unspecified convulsions (principal); E87.6 Hypokalemia; E83.42 Hypomagnesemia; Z88.8 Allergy status to other drugs, medicaments and biological substances
CPT/HCPCS: 36415; 80053; 81001; 82550; 83605; 83735; 85025; 96360; 96361; 99283; J7030; J7120

== ENCOUNTER 2021-04-01 11:22 | Emergency (ER) | payer MEDICAID ==
[~2021-04-01] VITALS: Ht 175.3 cm; Wt 85.0 kg
--- NOTE | 2021-04-01 12:27 | PHYS DOC ---
Past History Past Medical History: Gallstones, Seizure (NKECHI SCOTT DO) Past Surgical History: Cholecystectomy, Tonsillectomy, Tubal ligation (NKECHI SCOTT DO) Smoking: Non-smoker Alcohol Use: None Drug Use: None (NKECHI SCOTT DO) General Adult EDM: Chief Complaint: ABDOMINAL PAIN HPI: HPI: 50-year-old female with past medical history of seizure disorder, presents the ED with complaints of upper abdominal pain stating she had a seizure last week (on Monday or Monday) and was seen in the ED. States she fell and hit a hard floor when she had a seizure. Reports abdominal pain that started on Monday or Monday described as sharp, nonradiating, worse when bending over and with movements. Past surgical history of cholecystectomy. (NKECHI SCOTT DO) Review of Systems: Review of Systems: Constitutional: Denies fever or chills Eyes: Denies change in visual acuity HENT: Denies nasal congestion or sore throat Respiratory: Denies cough or shortness of breath Cardiovascular: Denies chest pain or hemoptysis GI: Denies nausea, vomiting, bloody stools or diarrhea : Denies dysuria or diaphoresis Musculoskeletal: Denies back pain or joint pain Integument: Denies rash or diaphoresis Neurologic: Denies headache or neck pain Psychiatric: Denies depression or anxiety (NKECHI SCOTT DO) Allergies: Allergies: Allergies Coded Allergies Type Severity Reaction Last Updated Verified cyclobenzaprine Adverse Reaction Intermediate 08/01/20 Yes (NKECHI SCOTT DO) Physical Exam: PE: Constitutional: Well developed, well nourished, no acute distress, non-toxic appearance. HENT: Normocephalic, atraumatic, Eyes: EOMI, conjunctiva normal, no discharge. Neck: Normal range of motion, supple, Cardiovascular: S1/2 present, regular rhythm Lungs & Thorax: Speaking in full sentences, bilateral equal chest rise, no tachypnea or increased work of breathing, pain over left anterior lower ribs Abdomen: soft, no tenderness, lap christian scars over right upper abdomen, no rigidity or guarding, Skin: Warm, dry, no erythema, no rash. [] Extremities: No tenderness, no cyanosis, Neurologic: Alert and oriented X 3, normal motor function, normal sensory fu nction, no focal deficits noted. [] Psychologic: Affect normal, judgement normal, mood normal. [] (NKECHI SCOTT DO) Current Patient Data: Vital Signs: Vital Signs Date Time Temp Pulse Resp B/P (MAP) Pulse Ox O2 Delivery O2 Flow Rate FiO2 04/01/21 11:34 98.2 60 16 128/66 100 Room Air (NKECHI SCOTT DO) EKG: EKG: Sinus rhythm 60 bpm, no axis deviation, normal intervals, no T wave inversions, no ST elevations or ST depressions (NKECHI SCOTT DO) Radiology/Procedures: Radiology/Procedures: IMAGING REPORT Signed PATIENT: PAVAN GARCIA ACCOUNT: [id number] : 1970 LOCATION: ER AGE: 50 SEX: F EXAM STATUS: REG ER ORD. PHYSICIAN: NKECHI SCOTT DO REASON: cp PROCEDURE: CHEST AP ONLY XR CHEST 1V History: Reason: cp / Spl. Instructions: / History: Comparison: February 15, 2021 Findings: No consolidation or pleural effusion. Normal heart size. No pneumothorax. Nipple shadow projecting over the right lung base. Impression: 1. No acute cardiopulmonary process. Electronically signed by: Efrain Carrasquillo DO (04/01/2021 12:47 PM) [id number] DICTATED AND SIGNED BY: EFRAIN CARRASQUILLO DO DATE: 04/01/21 1246 CC: ARIELA PARKER MD; NKECHI SCOTT DO ~MTH0 0 IMAGING REPORT Signed PATIENT: PAVAN GARCIA ACCOUNT: [id number] : 1970 LOCATION: ER AGE: 50 SEX: F EXAM STATUS: REG ER ORD. PHYSICIAN: NKECHI SCOTT DO REASON: upper abd pain, rib pain, fall 1 week ago. 75mls omni 300 PROCEDURE: CT CHEST ABD PELVIS W/CONTRAST CT CHEST+ABD+PELVIS W History: Upper abdominal pain, rib pain, fall one week ago. Comparison: None. Technique: CT of the chest, abdomen and pelvis with intravenous contrast. Findings: The aorta and pulmonary arteries are normal in caliber. No pulmonary embolism or aortic aneurysm is identified. The heart is normal. No significant coronary artery calcification. No pericardial effusion. Normal thyroid. No mediastinal adenopathy. Unremarkable esophagus. The airways are clear. No pneumothorax or pleural effusion. No airspace consolidation. The thoracic spine is normal in alignment without evidence for acute fracture. There is a nondisplaced fracture of the anterior right sixth rib (axial series 4 image 74). No free intraperitoneal air or free fluid. There is focal fatty infiltration adjacent to the falciform ligament. Liver is otherwise unremarkable. Cholecystectomy clips in the gallbladder fossa. Spleen, pancreas, adrenals and kidneys are unremarkable. The stomach, small bowel and colon are unremarkable. The uterus and adnexa as well as bladder are within normal limits. Small fat-containing inguinal hernias bilaterally. Soft tissues are otherwise unremarkable. No acute osseous abnormality. Degenerative changes of the lower lumbar spine and pubic symphysis. Impression: 1. Nondisplaced anterior right sixth rib fracture. No pneumothorax or pleural effusion. 2. No other acute findings in the chest, abdomen and pelvis. ------ Exposure: One or more of the following individualized dose reduction techniques were utilized for this examination: 1. Automated exposure control 2. Adjustment of the mA and/or kV according to patient size 3. Use of iterative reconstruction technique. Electronically signed by: Davon Pena MD (04/01/2021 3:46 PM) [facility] (NKECHI SCOTT DO) Heart Score: C/O Chest Pain: No Risk Factors: Risk Factors: DM, Current or recent (<one month) smoker, HTN, HLP, family history of CAD, obesity. Risk Scores: Score 0 - 3: 2.5% MACE over next 6 weeks - Discharge Home Score 4 - 6: 20.3% MACE over next 6 weeks - Admit for Clinical Observation Score 7 - 10: 72.7% MACE over next 6 weeks - Early Invasive Strategies (NKECHI SCOTT DO) Course & Med Decision Making: Course & Med Decision Making Pertinent Labs and Imaging studies reviewed. (See chart for details) [place] prescription prescribed by my CLINICAL LAB SPECIALIST due to my narcotic login credentials failing/iphone update. Will discharge home with strict ED return precautions were given for fever, worsening pain, neurologic deficits, shortness of breath or productive cough. Encouraged urgent outpatient follow-up with PMD. Life- threatening processes were considered but are low suspicion at this time, given history, physical exam and ED workup. Pt was educated on all prescription medications and adverse effects. All patient's questions were answered and pt was stable at time of discharge. Life/limb-threatening differential includes but is not limited to, aortic dissection, aortic aneurysm, acute coronary syndrome, surgical abdomen (appendicitis, cholecystitis, ischemic bowel, strangulated hernia, etc), bowel obstruction or volvulus, bladder outlet obstruction, gastrointestinal bleeding, inflammatory bowel disease, peptic ulcer disease, ACS/CAD, sepsis, diverticular disease, ureterolithiasis, nephrolithiasis, ovarian or testicular torsion, ectopic , vaginal hemorrhage, or genitourinary infection. I have spoken with the patient and/or caregivers. I explained the patient's condition, diagnoses and treatment plan based on the information available to me at this time. I have answered the patient and/or caregiver's questions and addressed any concerns. The patient and/or caregivers have a good understanding of patient's diagnosis, condition and treatment plan as can be expected at this point. Vital signs have been stable. Patient's condition is stable and appropriate for discharge from the emergency department. Patient will pursue further outpatient evaluation with primary care physician or other designated or consulting physician as outlined in the discharge instructions. The patient and/or caregivers are agreeable to this plan of care and follow-up instructions have been explained in detail. The patient and/or caregivers have received these instructions in written form and have expressed an understanding of the discharge instructions. The patient and/or caregivers are aware that any significant change of condition or worsening of symptoms should prompt immediate return to this or the closest emergency department or call to 911. (NKECHI SCOTT DO) Nkechi Disclaimer: Nkechi Disclaimer: This electronic medical record was generated, in whole or in part, using a voice recognition dictation system. (NKECHI SCOTT DO) Departure Departure: Impression: Primary Impression: Closed rib fracture Disposition: HOME / SELF CARE / HOMELESS Condition: STABLE Referrals: ARIELA PARKER MD (PCP) within 1 week for re-evaluation Patient Instructions: Incentive Spirometer, Rib Fracture Scripts Hydrocodone/Acetaminophen (Hydrocodone-Acetamin 5-325 mg) 1 Each Tablet 1 EACH PO Q6HRS for rib pain for 4 Days, #16 TAB 0 Refills Prov: DIANNE ALVAREZ APRN 04/01/21 Lidocaine/Menthol (LIDOPATCH) 1 Each Adh..patch 1 SERAFIN TP DAILY for pain for 4 Days, #4 EACH 0 Refills Apply daily for 12 hours, remove each patch for an additional 12 hours Prov: NKECHI SCOTT DO 04/01/21 NKECHI SCOTT DO Apr 01, 2021 12:27 DIANNE ALVAREZ APRN Apr 01, 2021 16:42
--- NOTE | 2021-04-01 12:46 | EKG ---
[address] [address] Test Date: 2021-04-01 Test Time: 12:32:32 Pat Name: PAVAN GARCIA Department: Room: Gender: F Diesel Service Apprentice: JOSEFINA : 1970 Requested By: NKECHI SCOTT Order Number: [id number] Reading MD: Measurements Intervals [place] Rate: 67 P: 32 IA: 132 QRS: 43 QRSD: 80 T: 54 QT: 426 QTc: 453 Interpretive Statements SINUS RHYTHM OTHERWISE NORMAL ECG RI6.02 No previous ECG available for comparison
--- NOTE | 2021-04-01 12:49 | RAD ---
XR CHEST 1V History: Reason: cp / Spl. Instructions: / History: Comparison: February 15, 2021 Findings: No consolidation or pleural effusion. Normal heart size. No pneumothorax. Nipple shadow projecting ov er the right lung base. Impression: 1. No acute cardiopulmonary process. Electronically signed by: Efrain Carrasquillo DO (04/01/2021 12:47 PM) [id number]
[2021-04-01 13:09] LABS: BASO % 1 % (0-3); EOS % 1 % (0-3); HEMATOCRIT 32.6 % (36.0-47.0); HEMOGLOBIN 10.8 g/dL (12.0-15.5); LYMPH # 1.3 x10^3/uL (1.0-4.8); LYMPH % 18 % (24-48); MEAN CORPUSCULAR HEMOGLOBIN 28 pg (25-35); MEAN CORPUSCULAR HGB CONC 33 g/dL (31-37); MEAN CORPUSCULAR VOLUME 84 fL (79-100); MONO # 0.6 x10^3/uL (0.0-1.1); MONO % 8 % (0-9); NEUT # 5.2 x10^3uL (1.8-7.7); NEUT % 73 % (31-73); PLATELET COUNT 293 x10^3/uL (140-400); RED BLOOD COUNT 3.91 x10^6/uL (3.50-5.40); WHITE BLOOD COUNT 7.1 x10^3/uL (4.0-11.0)
[2021-04-01 13:20] LABS: CLARITY,URINE HAZY; COLOR,URINE AMBER; GLUCOSE,URINE 100 mg/dL (NEG)
[2021-04-01 13:21] LABS: BILIRUBIN,URINE MOD (NEG); NITRITE,URINE NEG (NEG)
[2021-04-01 13:27] LABS: BACTERIA,URINE MOD /HPF (0-FEW); SQUAMOUS EPITHELIAL CELL,UR MOD /LPF
[2021-04-01 13:28] LABS: HYALINE CASTS, URINE OCC /HPF
[2021-04-01 13:32] LABS: ALBUMIN 3.7 g/dL (3.4-5.0); ALK PHOS 73 U/L (46-116); ALT (SGPT) 26 U/L (14-59); AST (SGOT) 23 U/L (15-37); BLOOD UREA NITROGEN 10 mg/dL (7-20); BUN/CREATININE RATIO 14 (6-20); CARBON DIOXIDE 27 mmol/L (21-32); CREATININE 0.7 mg/dL (0.6-1.0); GFR 89.3; GLUCOSE 100 mg/dL (70-99); LIPASE 64 U/L (73-393); MAGNESIUM 1.8 mg/dL (1.8-2.4); TOTAL PROTEIN 7.3 g/dL (6.4-8.2)
[2021-04-01] MEDS ORDERED: IOHEXOL 300 MG/ML 75 ML VIAL. IV ONE (15:00)
[2021-04-01] MEDS ORDERED: CONTRAST GIVEN. MC PRN (15:00)
--- NOTE | 2021-04-01 15:48 | RAD ---
CT CHEST+ABD+PELVIS W History: Upper abdominal pain, rib pain, fall one week ago. Comparison: None. Technique: CT of the chest, abdomen and pelvis with intravenous contrast. Findings: The aorta and pulmonary arteries are normal in caliber. No pulmonary embolism or aortic aneurysm is i dentified. The heart is normal. No significant coronary artery calcification. No pericardial effusion . Normal thyroid. No mediastinal adenopathy. Unremarkable esophagus. The airways are clear. No pneumothorax or pleural effusion. No airspace consolidation. The thoracic spine is normal in alignment without evidence for acute fracture. There is a nondisplace d fracture of the anterior right sixth rib (axial series 4 image 74). No free intraperitoneal air or free fluid. There is focal fatty infiltration adjacent to the falciform ligament. Liver is otherwise unremarkable . Cholecystectomy clips in the gallbladder fossa. Spleen, pancreas, adrenals and kidneys are unremark able. The stomach, small bowel and colon are unremarkable. The uterus and adnexa as well as bladder are within normal limits. Small fat-containing inguinal hernias bilaterally. Soft tissues are otherwise unremarkable. No acute osseous abnormality. Degenerative changes of the lower lumbar spine and pubic symphysis. Impression: 1. Nondisplaced anterior right sixth rib fracture. No pneumothorax or pleural effusion. 2. No other acute findings in the chest, abdomen and pelvis. ------ Exposure: One or more of the following individualized dose reduction techniques were utilized for thi s examination: 1. Automated exposure control 2. Adjustment of the mA and/or kV according to patient size 3. Use of iterative reconstruction technique. Electronically signed by: Davon Pena MD (04/01/2021 3:46 PM) [facility]
[2021-04-01] MEDS ORDERED: oxyCODONE IR 5 MG TABLET PO PRN (16:15)
[2021-04-01] MEDS ORDERED: HYDR-2155 PO (16:37)
[2021-04-01] MEDS ORDERED: LIDO1ADH TP (16:37)
[2021-04-01 16:39] VITALS: BP 120/70
[2021-04-01] MEDS ORDERED: HYDR-2759 PO (16:41)
[2021-04-01] MEDS ORDERED: LIDOCAINE (700MG/PATCH) PATCH. TD ONE (16:45)
[2021-04-01] MEDS ORDERED: PATCH REMOVAL. MC SCH (21:00)
== END 2021-04-01 16:53 | disposition home or self-care (01) ==
LOC: ER 11:22
DX: S22.31XA Fracture of one rib, right side, initial encounter for closed fracture (principal); G40.909 Epilepsy, unspecified, not intractable, without status epilepticus; Z90.49 Acquired absence of other specified parts of digestive tract; Z98.51 Tubal ligation status; W18.00XA Striking against unspecified object with subsequent fall, initial encounter; Y93.89 Activity, other specified; Y92.89 Other specified places as the place of occurrence of the external cause; Y99.8 Other external cause status
CPT/HCPCS: 36415; 71045; 71260; 74177; 80053; 81001; 81025; 83690; 83735; 84484; 85025; 87086; 93005; 99285; Q9967